=== PATIENT | male | born 1930 | race African-American/Black ===

== ENCOUNTER → 2017-09-21 | Outpatient (CLI) | payer OTHER, BC | LOC: HYPER 09-20 10:12 | DX: E11.622 Type 2 diabetes mellitus with other skin ulcer (principal); I83.899 Varicose veins of unspecified lower extremity with other complications; L97.811 Non-pressure chronic ulcer of other part of right lower leg limited to breakdown of skin; L97.821 Non-pressure chronic ulcer of other part of left lower leg limited to breakdown of skin; L08.89 Other specified local infections of the skin and subcutaneous tissue; R60.0 Localized edema; E78.5 Hyperlipidemia, unspecified; M19.90 Unspecified osteoarthritis, unspecified site; I10 Essential (primary) hypertension; E11.40 Type 2 diabetes mellitus with diabetic neuropathy, unspecified ==

== ENCOUNTER → 2018-03-15 | Outpatient (CLI) | payer OTHER, BC | LOC: HYPER 06:50 | DX: E11.622 Type 2 diabetes mellitus with other skin ulcer (principal); I87.331 Chronic venous hypertension (idiopathic) with ulcer and inflammation of right lower extremity; L97.811 Non-pressure chronic ulcer of other part of right lower leg limited to breakdown of skin; E11.40 Type 2 diabetes mellitus with diabetic neuropathy, unspecified; E78.5 Hyperlipidemia, unspecified; M19.90 Unspecified osteoarthritis, unspecified site; G47.30 Sleep apnea, unspecified; Z96.653 Presence of artificial knee joint, bilateral ==

== ENCOUNTER → 2018-03-29 | Outpatient (CLI) | payer OTHER, BC | LOC: HYPER 06:50 | DX: I87.331 Chronic venous hypertension (idiopathic) with ulcer and inflammation of right lower extremity (principal); E11.622 Type 2 diabetes mellitus with other skin ulcer; L97.811 Non-pressure chronic ulcer of other part of right lower leg limited to breakdown of skin; E78.5 Hyperlipidemia, unspecified; I10 Essential (primary) hypertension; M19.90 Unspecified osteoarthritis, unspecified site; E11.40 Type 2 diabetes mellitus with diabetic neuropathy, unspecified ==

== ENCOUNTER → 2018-05-03 | Outpatient (CLI) | payer OTHER, BC | LOC: HYPER 04-24 06:52 | DX: S80.821D Blister (nonthermal), right lower leg, subsequent encounter (principal); I87.331 Chronic venous hypertension (idiopathic) with ulcer and inflammation of right lower extremity; E11.622 Type 2 diabetes mellitus with other skin ulcer; L97.811 Non-pressure chronic ulcer of other part of right lower leg limited to breakdown of skin; R60.0 Localized edema; E78.5 Hyperlipidemia, unspecified; M19.90 Unspecified osteoarthritis, unspecified site; E11.40 Type 2 diabetes mellitus with diabetic neuropathy, unspecified; X58.XXXD Exposure to other specified factors, subsequent encounter ==

== ENCOUNTER → 2018-09-17 | Outpatient (CLI) | payer OTHER, BC | LOC: HYPER 07:11 | DX: E11.622 Type 2 diabetes mellitus with other skin ulcer (principal); I87.331 Chronic venous hypertension (idiopathic) with ulcer and inflammation of right lower extremity; L97.812 Non-pressure chronic ulcer of other part of right lower leg with fat layer exposed; E11.40 Type 2 diabetes mellitus with diabetic neuropathy, unspecified; E78.5 Hyperlipidemia, unspecified; G47.30 Sleep apnea, unspecified; I10 Essential (primary) hypertension; M19.90 Unspecified osteoarthritis, unspecified site; Z79.84 Long term (current) use of oral hypoglycemic drugs ==

== ENCOUNTER → 2018-10-05 | Outpatient (CLI) | payer OTHER, BC | LOC: HYPER 07:42 | DX: E11.622 Type 2 diabetes mellitus with other skin ulcer (principal); I87.331 Chronic venous hypertension (idiopathic) with ulcer and inflammation of right lower extremity; L97.822 Non-pressure chronic ulcer of other part of left lower leg with fat layer exposed; E11.40 Type 2 diabetes mellitus with diabetic neuropathy, unspecified; E78.5 Hyperlipidemia, unspecified; G47.30 Sleep apnea, unspecified; M19.90 Unspecified osteoarthritis, unspecified site; Z79.84 Long term (current) use of oral hypoglycemic drugs ==

== ENCOUNTER → 2019-04-03 | Outpatient (CLI) | payer OTHER, BC | LOC: HYPER 06:40 | DX: S81.811A Laceration without foreign body, right lower leg, initial encounter (principal); E11.40 Type 2 diabetes mellitus with diabetic neuropathy, unspecified; E78.5 Hyperlipidemia, unspecified; I10 Essential (primary) hypertension; M19.90 Unspecified osteoarthritis, unspecified site; G47.30 Sleep apnea, unspecified; R60.0 Localized edema; Z79.84 Long term (current) use of oral hypoglycemic drugs; X58.XXXA Exposure to other specified factors, initial encounter; Y93.89 Activity, other specified; Y92.89 Other specified places as the place of occurrence of the external cause; Y99.8 Other external cause status ==

== ENCOUNTER → 2019-04-10 | Outpatient (CLI) | payer OTHER, BC | LOC: HYPER 06:46 | DX: E11.622 Type 2 diabetes mellitus with other skin ulcer (principal); L97.811 Non-pressure chronic ulcer of other part of right lower leg limited to breakdown of skin; L97.821 Non-pressure chronic ulcer of other part of left lower leg limited to breakdown of skin; E11.40 Type 2 diabetes mellitus with diabetic neuropathy, unspecified; I10 Essential (primary) hypertension; E78.5 Hyperlipidemia, unspecified; M19.90 Unspecified osteoarthritis, unspecified site; R60.0 Localized edema; G47.30 Sleep apnea, unspecified; Z79.84 Long term (current) use of oral hypoglycemic drugs ==

== ENCOUNTER → 2019-08-22 | Outpatient (CLI) | payer OTHER, BC ==
[~2019-08-22] MED LIST: AMMONIUM LACTA226 GM TOP; ASPIR 8181 MG PO; AVAPRO300 MG PO; CARDIZEM CD360 MG PO; DEPO-TESTO200 MG/1 M; DULCOLAX STOOL100 M1 PO; FLOMAX0.4 MG PO; IPRAT-ALBUT 0.5-3 ML INH; IRON325 PO; KETOCONAZOLE15 GM TOP; LASIX 40 MG TAB40 MG PO; LIPITOR40 MG PO; METFORMIN HCL500 M3 PO; MIRALAX17 GM PO; MUCINEX600 MG PO; MULTIVITAMINS1 EAC7 PO; MUPIROCIN22 GM; NEURONTIN300 MG PO; PEPCID20 MG PO; PERCOCET 10-321 EAC1 PO; PREDNISONE 10 M10 MG PO; TIMOLOL GL0.5 %/5 M1 OPHTHALMIC; TYLENOL325 MG PO; ZOSYN 3.3753.375 GM IV
== END ==
LOC: HYPER 09:45
DX: E11.622 Type 2 diabetes mellitus with other skin ulcer (principal); I83.018 Varicose veins of right lower extremity with ulcer other part of lower leg; L97.811 Non-pressure chronic ulcer of other part of right lower leg limited to breakdown of skin; S81.811D Laceration without foreign body, right lower leg, subsequent encounter; I83.892 Varicose veins of left lower extremity with other complications; E11.40 Type 2 diabetes mellitus with diabetic neuropathy, unspecified; E78.5 Hyperlipidemia, unspecified; R60.0 Localized edema; G47.30 Sleep apnea, unspecified; I10 Essential (primary) hypertension; M19.90 Unspecified osteoarthritis, unspecified site; Z96.653 Presence of artificial knee joint, bilateral; Z90.49 Acquired absence of other specified parts of digestive tract; Z79.84 Long term (current) use of oral hypoglycemic drugs; X58.XXXD Exposure to other specified factors, subsequent encounter

== ENCOUNTER → 2019-08-29 | Outpatient (CLI) | payer OTHER, BC | LOC: HYPER 13:56 | DX: E11.622 Type 2 diabetes mellitus with other skin ulcer (principal); L97.311 Non-pressure chronic ulcer of right ankle limited to breakdown of skin; L97.811 Non-pressure chronic ulcer of other part of right lower leg limited to breakdown of skin; E11.40 Type 2 diabetes mellitus with diabetic neuropathy, unspecified; I10 Essential (primary) hypertension; E78.5 Hyperlipidemia, unspecified; M19.90 Unspecified osteoarthritis, unspecified site; G47.30 Sleep apnea, unspecified; R60.0 Localized edema; Z79.84 Long term (current) use of oral hypoglycemic drugs ==

== ENCOUNTER → 2019-09-05 | Outpatient (CLI) | payer OTHER, BC | LOC: HYPER 05:21 | DX: E11.622 Type 2 diabetes mellitus with other skin ulcer (principal); L97.811 Non-pressure chronic ulcer of other part of right lower leg limited to breakdown of skin; I87.2 Venous insufficiency (chronic) (peripheral); E11.40 Type 2 diabetes mellitus with diabetic neuropathy, unspecified; I10 Essential (primary) hypertension; E78.5 Hyperlipidemia, unspecified; M19.90 Unspecified osteoarthritis, unspecified site; G47.30 Sleep apnea, unspecified; R60.0 Localized edema; Z79.84 Long term (current) use of oral hypoglycemic drugs ==

== ENCOUNTER → 2019-09-13 | Outpatient (CLI) | payer OTHER, BC | LOC: HYPER 07:50 | DX: E11.622 Type 2 diabetes mellitus with other skin ulcer (principal); I83.018 Varicose veins of right lower extremity with ulcer other part of lower leg; L97.811 Non-pressure chronic ulcer of other part of right lower leg limited to breakdown of skin; I83.028 Varicose veins of left lower extremity with ulcer other part of lower leg; L97.821 Non-pressure chronic ulcer of other part of left lower leg limited to breakdown of skin; S90.01XD Contusion of right ankle, subsequent encounter; S81.811D Laceration without foreign body, right lower leg, subsequent encounter; S80.822D Blister (nonthermal), left lower leg, subsequent encounter; I89.0 Lymphedema, not elsewhere classified; R60.0 Localized edema; E11.40 Type 2 diabetes mellitus with diabetic neuropathy, unspecified; E78.5 Hyperlipidemia, unspecified; G47.30 Sleep apnea, unspecified; I10 Essential (primary) hypertension; M19.90 Unspecified osteoarthritis, unspecified site; Z79.84 Long term (current) use of oral hypoglycemic drugs; W22.8XXD Striking against or struck by other objects, subsequent encounter ==

== ENCOUNTER 2019-09-17 01:03 | Inpatient (IN) | payer OTHER, BC ==
[~2019-09-17] VITALS: Ht 175.3 cm; Wt 84.9 kg
[2019-09-17] VITALS (11 sets, daily range): BP systolic 110–163; BP diastolic 60–89
[2019-09-17 01:27] LABS: ABSOLUTE NEUTROPHILS 10.1 thou/uL (1.4-8.2); BASOPHILS 0.4 % (0.0-2.0); EOSINOPHILS 0.3 % (0.0-3.0); HEMATOCRIT 42.8 % (42.0-52.0); HEMOGLOBIN 13.3 gm/dL (14.0-18.0); MCH 26.8 pg (26.0-34.0); MCHC 31.1 g/dL (28.0-37.0); MCV 85.9 fL (80.0-100.0); MONOCYTES 5.4 % (1.0-8.0); PLATELET COUNT 257 thou/uL (150-400); POLYS 77.9 % (36.0-66.0); RBC 4.98 mil/uL (4.50-6.00); RDW 15.5 % (10.5-14.5)
[2019-09-17 01:34] LABS: ANION GAP 8 mmol/L (7-16); BUN 49 mg/dL (7-18); CALCIUM 9.4 mg/dL (8.5-10.1); CHLORIDE 104 mmol/L (98-107); CO2 30 mmol/L (21-32); CREATININE 1.7 mg/dL (0.7-1.3); GLUCOSE 204 mg/dL (74-106); POTASSIUM 4.4 mmol/L (3.5-5.1); SODIUM 142 mmol/L (136-145)
[2019-09-17 01:45] LABS: ALBUMIN 3.7 g/dL (3.4-5.0); SGOT 15 U/L (15-37); SGPT 12 U/L (30-65); TOTAL BILIRUBIN 0.5 mg/dL (<0.1-1.0); TOTAL PROTEIN 7.6 g/dL (6.4-8.2); TROPONIN-I <0.06 ng/mL (<0.06)
--- NOTE | 2019-09-17 02:39 | NUR ---
BILATERAL LOWER EXTREMITIES HAVE BEEN WRAPPED BY WOUND CARE OUTPATIENT TREATMENT PER PATIENT. INPATIENT NURSE PRACTITIONER AT BEDSIDE FOR EVALUATION REMOVED DRESSINGS AND INFORMED PATIENT THAT THE BILATERAL LOWER EXTREMITIES WOULD REMAIN UNCOVERED UNTIL SEEN BY WOUND CARE (INPATIENT SETTING)
[2019-09-17 03:17] LABS: BE(vivo) 0.3 mmol/L (-2 to +3); HCO3 27.1 mmol/L (22.0-26.0); PCO2 52.7 mmHg (35.0-45.0); PO2 110.2 mmHg (80.0-100.0); sO2 97.7 % (92.0-98.0)
[2019-09-17 03:18] LABS: pH 7.329 (7.360-7.450)
--- NOTE | 2019-09-17 04:30 | NUR ---
PATIENT ARRIVED TO ICU AT 09/17 FROM ER. PATIENT ADMITTED WITH CC/TELE ADMISSION ORDERS. PATIENT RESTING COMFORTBLY IN BED ON BIPAP. JORDON CINTRON HAS SEEN PATIENT AND PLACED ORDERS. DR. JIM NOTIFIED OF PATIENTS ARRIVAL AND CRITICAL ABG'S. ADMISSION DOCUMENTATION COMPLETE.
[2019-09-17 05:58] LABS: URINE BILIRUBIN NEGATIVE (Negative); URINE BLOOD 1+ (Negative); URINE CLARITY CLEAR; URINE COLOR YELLOW; URINE GLUCOSE-RANDOM* NEGATIVE (Negative); URINE KETONES NEGATIVE (Negative); URINE LEUKOCYTES-REFLEX NEGATIVE (Negative); URINE NITRITE-REFLEX NEGATIVE (Negative); URINE PROTEIN (DIPSTICK) NEGATIVE (Negative); URINE UROBILINOGEN 0.2 E.U./dl (0.2-1.0)
[2019-09-17 06:23] LABS: BACTERIA-REFLEX None Seen /HPF (None Seen); CASTS None Seen /LPF (None Seen); SQUAMOUS 0-3 Few /LPF (0-3); URINE RBC 3-10 Few /HPF (0-2); URINE WBC-REFLEX 0-5 Rare /HPF (0-5)
[2019-09-17 06:24] LABS: CRYSTALS None Seen /LPF (None Seen)
[2019-09-17 07:30] LABS: BE(vivo) 0.7 mmol/L (-2 to +3); HCO3 26.5 mmol/L (22.0-26.0); PCO2 47.4 mmHg (35.0-45.0); PO2 78.4 mmHg (80.0-100.0); pH 7.366 (7.360-7.450); sO2 95.1 % (92.0-98.0)
--- NOTE | 2019-09-17 09:30 | NUR ---
BEDSIDE ECHO IN PROGRESS.
--- NOTE | 2019-09-17 10:23 | 2DMMODE ---
Formerly [facility] [address] [place] [address] 2 D/M-MODE ECHOCARDIOGRAM Name: JOSUE TRACEY Room #: 246-P ADM IN M.R.#: [id number] Admission: 09/17/19 Attend Phys: Ranjan Burr Discharge: Date of : 34 Report #: [id number] THIS REPORT FOR: //name// APPROVED REPORT Study performed: 09/17/2019 09:11:37 EXAM: Comprehensive 2D, Doppler, and color-flow Echocardiogram Patient Location: ICU Room #: [facility] Status: routine BSA: 2.03 HR: 87 bpm BP: 136/77 mmHg Rhythm: NSR Other Information Study Quality: Adequate Technically limited study due to limited patient mobility. Indications Pulmonay edema, short of breath. Hx: CHF, HTN, HLP, DM. 2D Dimensions RVDd: 49.88 mm IVSd: 14.00 (7-11mm) LVOT Diam: 20.64 (18-24mm) LVDd: 47.44 mm PWd: 13.00 (7-11mm) Ascending Ao: 35.23 (22-36mm) LVDs: 28.50 (25-40mm) Aortic Root: 29.37 mm Volumes Left Atrial Volume (Systole) Single Plane 4CH: 122.59 mL Single Plane 2CH: 109.60 mL LA ESV Index: 61.00 mL/m2 Aortic Valve AoV Peak Ron.: 3.80 m/s AO Peak Gr.: 57.80 mmHg LVOT Max P.65 mmHg AO Mean Gr.: 32.62 mmHg AO V2 Mean: 2.67 m/s LVOT Max V: 1.08 m/s AO V2 VTI: 61.56 cm KAI Vmax: 0.95 cm2 Formerly [facility] [address] [place] [address] 2 D/M-MODE ECHOCARDIOGRAM Name: JOSUE TRACEY Room #: 246-P [facility] IN ..#: [id number] Admission: 09/17/19 Attend Phys: Ranjan Burr Discharge: Date of : 32 Report #: [id number] Mitral Valve E/A Ratio: 1.5 MV Decel. Time: 220.30 ms MV E Max Ron.: 1.73 m/s MV A Ron.: 1.14 m/s MV PHT: 63.89 ms IVRT: 48.44 ms Pulmonary Valve PV Peak Ron.: 1.34 m/s PV Peak Gr.: 7.16 mmHg Tricuspid Valve TR Peak Ron.: 4.02 m/s TR Peak Gr.: 64.70 mmHg Left Ventricle The left ventricle is normal size. There is normal LV segmental wall motion. Mild to moderate concentric left ventricular hypertrophy. Left ventricular systolic function is hyperdynamic. LVEF is 70%. Moderate diastolic dysfunction is present (pseudonormal filling). Right Ventricle Right ventricle is mild to moderately dilated. The right ventricular systolic function is normal. Atria Left atrium is severely dilated. Right atrium is mildly dilated. Aortic Valve Aortic valve is heavily calcified. Mild aortic regurgitation. There is severe valvular aortic stenosis. Calculated aortic valve area is 0.9 cm2 with maximum pressure gradient of 58 mmHg and mean pressure gradient of 33 mmHg. Mitral Valve Moderate mitral annular calcification. Moderate mitral regurgitation; eccentric jet. No evidence of mitral valve stenosis. There is mitral valve prolapse. Tricuspid Valve The tricuspid valve is normal in structure. Mild tricuspid regurgitation. Estimated PAP is 65mmHg plus the right atrial pressure. Formerly [facility] [address] [place] [address] 2 D/M-MODE ECHOCARDIOGRAM Name: ALEXYJOSUE Kapil Room #: 246-P [facility] IN M.R.#: [id number] Admission: 09/17/19 Attend Phys: Ranjan Burr Discharge: Date of : 32 Report #: [id number] Pulmonic Valve The pulmonary valve is normal in structure. Mild pulmonic regurgitation. Great Vessels The aortic root is normal in size. The ascending aorta is normal in size. IVC is not well visualized. Pericardium There is no pericardial effusion. <Conclusion> The left ventricle is normal size. LVEF is 70%. Right ventricle is mild to moderately dilated. The right ventricular systolic function is normal. Left atrium is severely dilated. Right atrium is mildly dilated. Aortic valve is heavily calcified. Mild aortic regurgitation. There is severe valvular aortic stenosis. Calculated aortic valve area is 0.9 cm2 with maximum pressure gradient of 58 mmHg and mean pressure gradient of 33 mmHg. Moderate mitral annular calcification. Moderate mitral regurgitation; eccentric jet. The tricuspid valve is normal in structure. Mild tricuspid regurgitation. Estimated PAP is 65mmHg plus the right atrial pressure. The pulmonary valve is normal in structure. Mild pulmonic regurgitation. There is no pericardial effusion. <ELECTRONICALLY SIGNED> By: Roddy Buckley MD 09/17/19 1023 1023 1023 Roddy Buckley MD /INF
--- NOTE | 2019-09-17 14:52 | NUR ---
WOUND CARE F/U; ROUNDING WITH DR LANE. THE LEFT LEG WOUND IS FRAGIALLY HEALED. NO S/S OF INFECTION. RECOMMENDATIONS; XEROFORM,SECURE WITH TRUMAN, DAILY/PRN DISCUSSED WITH RN
--- NOTE | 2019-09-17 15:55 | NUR ---
INITIAL ASSESSMENT: SW reviewed chart and spoke with nursing. Pt was admitted from home due to CHF/pneumonia. Pt is currently in ICU. SW met with pt at bedside. Introduced role of SW. Pt is alert/orientated x 4. Pt reports he lives at home with his . Prior to admission, pt was independent with ADLs. Pt reports he has a cane and walker at home. Pt's home has 7 steps from the garage inside and 8 steps up to the second floor to the bedroom. Pt reports that he is able to navigate the stairs, but slowly. Pt's PCP is Dr. Jaun Stratton. Pt states he is currently on service with [facility]. Pt has done outpatient therapy at [facility]. [facility] liaison aware of pt's hospitalization. SW is following to assist as needed with discharge planning.
--- NOTE | 2019-09-17 16:07 | NUR ---
DISCHARGE PLANNING. ANTICIPATED DISCHARGE TO HOME WITH HOME HEALTH SERVICES. PATIENT STATES HE IS CURRENT WITH [facility], CONFIRMED WITH [facility] LIA[facility]. CLINICAL INFORMATION FAXED TO [facility], VERIFIED RECEIVED. FOLLOWING TO ASSIST WITH DISCHARGE NEEDS. UNIT SW AWARE.
--- NOTE | 2019-09-17 19:18 | EKG ---
[address] [place] [address] ELECTROCARDIOGRAM REPORT Name: JOSUE TRACEY Room #: 246-P ADM IN M.R.#: [id number] Admission: 09/17/19 Attend Phys: Ranjan Vera Discharge: Date of : 32 Report #: [id number] THIS REPORT FOR: //name// [facility] ED Test Date: 2019-09-17 Test Time: 01:11:32 Pat Name: JOSUE TRACEY Department: Room: 246 Gender: M Cigar Bander: NADIA : 1930 Requested By: Kamari Mahan Order Number: [id number] MD: Nicolás Mills Measurements Intervals [place] Rate: 91 P: 24 FL: 199 QRS: -43 QRSD: 109 T: 99 QT: 354 QTc: 436 Interpretive Statements Baseline artifact limits interpretation Sinus rhythm Leftward axis Nonspecific intraventricular conduction delay Poor R wave progression Compared to ECG 10/22/2009 09:32:36 [place] has shifted leftward Electronically Signed On 09-17-2019 19:17:52 CRIBBER by Nicolás Mills [email or web address] <ELECTRONICALLY SIGNED> By: Nicolás Mills MD, [facility] 09/17/191916 0 0 Nicolás Mills MD, [facility] /EPI
--- NOTE | 2019-09-17 23:55 | NUR ---
Patient is lying in bed watching tv at this time. No distress is noted. Will continue to monitor.
[2019-09-18] VITALS (7 sets, daily range): BP systolic 105–136; BP diastolic 57–86
[2019-09-18 04:54] LABS: HEMATOCRIT 36.4 % (42.0-52.0); HEMOGLOBIN 11.4 gm/dL (14.0-18.0); MCHC 31.5 g/dL (28.0-37.0); MCV 85.7 fL (80.0-100.0); RBC 4.24 mil/uL (4.50-6.00); WBC 5.5 thou/uL (4.0-11.0)
[2019-09-18 05:05] LABS: CALCIUM 8.9 mg/dL (8.5-10.1); CREATININE 1.6 mg/dL (0.7-1.3); POTASSIUM 4.1 mmol/L (3.5-5.1)
--- NOTE | 2019-09-19 04:46 | NUR ---
Patient reported pain and was administered oxycodone around 2300 to partial relief. Patient is working towards his discharge goals. Nursing will continue to monitor.
[2019-09-19 04:54] VITALS: BP 141/86
[2019-09-19 07:14] VITALS: BP 128/82
[2019-09-19 10:45] LABS: HEMATOCRIT 39.2 % (42.0-52.0); HEMOGLOBIN 12.4 gm/dL (14.0-18.0); MCH 26.9 pg (26.0-34.0); MCHC 31.6 g/dL (28.0-37.0); MCV 85.1 fL (80.0-100.0); RBC 4.61 mil/uL (4.50-6.00); RDW 15.8 % (10.5-14.5); WBC 8.7 thou/uL (4.0-11.0)
[2019-09-19 10:58] LABS: CALCIUM 9.5 mg/dL (8.5-10.1); CREATININE 1.7 mg/dL (0.7-1.3); MAGNESIUM 1.5 mg/dL (1.8-2.4); POTASSIUM 3.6 mmol/L (3.5-5.1)
[2019-09-19 11:39] VITALS: BP 116/75
--- NOTE | 2019-09-19 13:43 | NUR ---
SW reviewed chart and spoke with nursing and attending physician. Pt was transferred to from ICU and is progressing towards goals for discharge. Discharge home is anticipated in 1-2 days. SW met with pt at bedside to discuss discharge plan. Pt states he feels strong enough to return home and resume HH services. SW updated [facility] liaison. Plan is for pt to discharge home with HH when medically stable. BRAIN is following to assist as needed with discharge planning.
[2019-09-19] MEDS ORDERED: MUPIROCIN22 GM (16:01)
[2019-09-19] MEDS ORDERED: FLOMAX0.4 MG PO (16:02)
[2019-09-19] MEDS ORDERED: AVAPRO300 MG PO (16:03)
[2019-09-19] MEDS ORDERED: LASIX 40 MG TAB40 MG PO (16:03)
[2019-09-19] MEDS ORDERED: KETOCONAZOLE15 GM TOP (16:05)
[2019-09-19] MEDS ORDERED: DULCOLAX STOOL100 M1 PO (16:06)
[2019-09-19] MEDS ORDERED: CARDIZEM CD360 MG PO (16:07)
[2019-09-19] MEDS ORDERED: LIPITOR40 MG PO (16:07)
[2019-09-19] MEDS ORDERED: MULTIVITAMINS1 EAC7 PO (16:08)
[2019-09-19] MEDS ORDERED: IRON325 PO (16:08)
[2019-09-19] MEDS ORDERED: NEURONTIN300 MG PO (16:10)
[2019-09-19] MEDS ORDERED: PERCOCET 10-321 EAC1 PO (16:11)
[2019-09-19] MEDS ORDERED: METFORMIN HCL500 M3 PO (16:12)
[2019-09-19] MEDS ORDERED: DEPO-TESTO200 MG/1 M (16:13)
[2019-09-19 16:40] VITALS: BP 144/90
--- NOTE | 2019-09-19 16:42 | NUR ---
ASSUMED CARE OF PATIENT AT 0700. NSR. 2L OXYGEN ON NASAL CANNULA. VSS. MULTIPLE BOWEL MOVEMENTS TODAY AFTER ONE TIME ORDER OF LACTULOSE. POZO OUTPUT ADEQUATE. CONTINUING TO MONITOR.
[2019-09-19 19:50] VITALS: BP 152/107
[2019-09-19 21:50] VITALS: BP 133/89
--- NOTE | 2019-09-20 02:18 | NUR ---
HAS BEEN AWAKE MOST OF SHIFT. WORKING ON GOALS AND PLAN OF CARE FOR NOC. PAIN MEDICATION GIVEN NEEDED FOR COMFORT AND CHRONIC PAIN. PROGRESSING SLOWLY TOWARDS DISCHARGE GOALS. CONTINUE TO ASSES.
[2019-09-20 03:23] VITALS: BP 146/92
[2019-09-20 05:28] LABS: HEMATOCRIT 38.8 % (42.0-52.0); HEMOGLOBIN 12.1 gm/dL (14.0-18.0); MCH 26.7 pg (26.0-34.0); MCHC 31.2 g/dL (28.0-37.0); MCV 85.4 fL (80.0-100.0); RBC 4.54 mil/uL (4.50-6.00); RDW 15.5 % (10.5-14.5); WBC 7.5 thou/uL (4.0-11.0)
[2019-09-20 05:41] LABS: CALCIUM 9.1 mg/dL (8.5-10.1); CREATININE 1.7 mg/dL (0.7-1.3); MAGNESIUM 1.6 mg/dL (1.8-2.4); POTASSIUM 3.9 mmol/L (3.5-5.1)
[2019-09-20 07:50] VITALS: BP 135/89
--- NOTE | 2019-09-20 10:15 | NUR ---
BRAIN reviewed chart and spoke with nursing. BRAIN notified that is able to accept pt when medically stable. BRAIN met with pt at bedside to provide update and discuss discharge plan. Pt is agreeable with going to prior to returning home. SW updated [facility] liaison. BRAIN notified attending physician of 's acceptance. SW is following to assist as needed with discharge planning.
[2019-09-20 11:41] VITALS: BP 123/81
[2019-09-20] MEDS ORDERED: MIRALAX17 GM PO (12:02)
[2019-09-20] MEDS ORDERED: PEPCID20 MG PO (12:02)
[2019-09-20] MEDS ORDERED: MUCINEX600 MG PO (12:02)
[2019-09-20] MEDS ORDERED: TYLENOL325 MG PO (12:02)
[2019-09-20] MEDS ORDERED: AMMONIUM LACTA226 GM TOP (12:02)
[2019-09-20] MEDS ORDERED: IPRAT-ALBUT 0.5-3 ML INH (12:02)
[2019-09-20] MEDS ORDERED: ASPIR 8181 MG PO (12:02)
[2019-09-20] MEDS ORDERED: ZOSYN 3.3753.375 GM IV (12:12)
[2019-09-20] MEDS ORDERED: PREDNISONE 10 M10 MG PO (12:18)
--- NOTE | 2019-09-20 13:36 | NUR ---
ASSUMED CARE OF PT AT 0700. PT ALERT AND ORIENTED IN NO ACUTE DISTRESS. VOICING NO COMPLAINTS. BREATHING COMFORTABLY ON 2L NC. CXR SHOWING IMPROVEMENT. UP W/ 1 ASSIST. VITALS STABLE. BLOOD SUGARS CONTROLLED. CALLS OUT APPROPRIATELY. D/C PENDING REHAB BED. PT PROGRESSING TOWARD POC GOALS.
--- NOTE | 2019-09-20 15:08 | HC ---
[facility] [place] [address] CONSULTATION Name: JOSUE TRACEY Room #: 356-P [facility] IN M.R.#: [id number] Admission: 09/17/19 Attend Phys: Ranjan Vera Discharge: Date of : 32 Report #: [id number] THIS REPORT FOR: //name// CC: Ranjan Stratton DATE OF SERVICE: 09/19/2019 INFECTIOUS DISEASE CONSULTATION. REASON FOR CONSULTATION: I was asked to evaluate concerning bacteremia and respiratory failure. HISTORY OF PRESENT ILLNESS: The patient is an 88-year-old underlying history of diabetes, hypertension, aortic stenosis, diastolic heart failure, obstructive sleep apnea, hospitalized about 3 or 4 months ago at [facility] with congestive heart failure. Dismissed on 2 liters of oxygen per nasal cannula. Had been doing reasonably well at home until 4 days ago after he was watching a football game, he had acute onset of shortness of breath. Mild chest discomfort with no definite chest pain. No cough or sputum production. No nausea, vomiting or diarrhea. He has had no fever, chills or sweats. Denies any hemoptysis. He has had no chest pain or pleuritic discomfort. Hospitalized through the Emergency Room, placed on IV antibiotic therapy. He was also given diuretics. With such, he has lost several pounds of weight. He has continued in negative fluid balance. Remains on 2 liters of oxygen per nasal cannula. Initial white count was 13,000, now is normal. Blood cultures obtained at the time of admission 11/07 showing gram-negative coccobacillus. REVIEW OF SYSTEMS: A 10-point review of system was negative other than what has been described above. ALLERGIES: None known. MEDICATIONS: Included albuterol, ipratropium, docusate sodium, MiraLax, Pepcid, aspirin, Lasix, insulin, Solu-Medrol. Antibiotic therapy has included vancomycin, Levaquin, Zosyn. PAST MEDICAL HISTORY: DVT, obstructive sleep apnea, hypertension, anemia, hiatal hernia, diabetes, hyperlipidemia, aortic stenosis, bilateral total knee arthroplasty, spinal stenosis, previous laminectomy, small-bowel obstruction, ventral herniorrhaphy, BPH. FAMILY HISTORY: Noncontributory. SOCIAL HISTORY: Nonsmoker, no significant alcohol intake. [address] [address] CONSULTATION Name: ALEXYJOSUE Room #: 356-[facility] IN .R.#: [id number] Admission: 09/17/19 Attend Phys: Ranjan Vera Discharge: Date of : 32 Report #: [id number] PHYSICAL EXAMINATION: VITAL SIGNS: Afebrile and hemodynamically stable. On oxygen at 2 liters per nasal cannula, sitting up in his chair. He is alert, cooperative, pleasant, in no acute distress. SKIN: With venous stasis ulcers with scarring. No active lesion identified. No palpable adenopathy. HEENT: Eyes, without scleral icterus. He was edentulous. No oral lesions noted. NECK: Supple, with no thyromegaly or mass. LUNGS: Basilar crackles bilaterally. No consolidation. No rub. HEART: Regular with a 3/6 systolic murmur heard across the precordium, most prominent left sternal border. No gallop. No rub. ABDOMEN: Obese, soft, nontender, no hepatosplenomegaly or mass appreciated. GENITORECTAL: Not performed. EXTREMITIES: With 1+ lower extremity edema. No clubbing or cyanosis. BACK: Nontender. NEUROLOGIC: Cranial nerves intact. Strength in upper and lower extremities was symmetric and normal. Sensation to touch upper and lower extremities normal. Mood, no anxiety or depression identified. LABORATORY STUDIES: Sodium 140, potassium 3.6, bicarbonate 33, creatinine 1.7. Hemoglobin 12.4, WBC 8.7, platelet count 234,000. Abdominal x-ray, no evidence of bowel obstruction, large amount of stool in the colon. Blood cultures 1 of 2 showing gram-positive cocci, gram-negative coccobacillus. Vancomycin trough 10. Procalcitonin 0.26. Chest x-ray, pulmonary edema. IMPRESSION: 1. An 88-year-old with acute hypoxia, I am suspecting congestive heart failure at presentation. He did have mild leukocytosis, but no fever and he has had no cough. In addition, he has had positive blood culture, yet indeterminate at this point if we are dealing with true bacteremia or contaminant. No evidence of urinary tract infection. His urinalysis was unremarkable. He does have constipation, but no abdominal pain. Does have suspected chronic kidney disease with creatinine now 1.7. 2. Diabetes. 3. Hypertension. 4. Peripheral neuropathy. 5. Obstructive sleep apnea. RECOMMENDATIONS: We will continue with Zosyn pending further culture results. Follow serial laboratory studies and chest x-ray as continue treatment with antibiotics and diuresis. <ELECTRONICALLY SIGNED> By: Mahad Mcgee MD 09/20/19 1508 1220 58 Mahad Mcgee MD /nt
[2019-09-20 15:16] VITALS: BP 126/83
[2019-09-21] MEDS ORDERED: TIMOLOL GL0.5 %/5 M1 OPHTHALMIC (14:37)
--- NOTE | 2019-09-22 11:57 | HC ---
[facility] [place] [address] CONSULTATION Name: JOSUE TRACEY Room #: 356-P [facility]..#: [id number] Admission: 09/17/19 Attend Phys: Ranjan Vera Discharge: 09/20/19 Date of : 32 Report #: [id number] THIS REPORT FOR: //name// CC: Ranjan Blackmonen Chayito DATE OF SERVICE: 09/17/2019 HISTORY OF PRESENT ILLNESS: An 88-year-old male patient who was admitted to the hospital with acute hypoxic respiratory failure, diastolic heart failure and community-acquired pneumonia. He is noted to have ulcerations to both of his legs and I have been asked to see him with regard to wound care. He is currently in the ICU having some mild dyspnea, but states he has been feeling a little bit better since admission. PAST MEDICAL AND SURGICAL HISTORY: Positive for congestive heart failure and pneumonia, history of hypertension, type 2 diabetes mellitus, mitral valve prolapse, previous bilateral knee replacements and spinal stenosis. SOCIAL HISTORY: Negative for alcohol or tobacco use. FAMILY HISTORY: Noncontributory. ALLERGIES: None. MEDICATIONS: Ipratropium albuterol, aspirin, atorvastatin, ceftriaxone, diltiazem, famotidine, ferrous sulfate, Lasix, gabapentin, losartan, metformin, polyethylene glycol, prednisone, tamsulosin, and testosterone. REVIEW OF SYSTEMS: Limited to that mentioned already in the history of present illness. The patient is having some dyspnea and is not able to answer questions other than that discussed above. PHYSICAL EXAMINATION: VITAL SIGNS: At this time include temperature 36.0, pulse 87, respiratory rate 18, blood pressure 111/61. GENERAL: This is a chronically ill-appearing male patient who appears to be in mild discomfort. HEENT: Head normocephalic. Nose and throat are clear. NECK: Supple. LUNGS: Diminished. HEART: Tachycardic without murmur. ABDOMEN: Soft. Bowel sounds present. EXTREMITIES: Demonstrate venous type ulcerations to both pretibial regions, greater on the right than on the left. Both areas are clean, granulating and showing signs of epithelialization. They are not infected. There is 2+ edema [facility] [place] [place] [address] [place] [address] CONSULTATION Name: JOSUE TRACEY Room #: 356-P [facility] IN M.R.#: [id number] Admission: 09/17/19 Attend Phys: Ranjan Vera Discharge: 09/20/19 Date of : 32 Report #: [id number] noted at this time. CLINICAL IMPRESSION: 1. Venous ulcers, bilateral lower extremities, right greater than left. 2. Healthcare-associated pneumonia. 3. Acute kidney injury. 4. Type 2 diabetes mellitus. 5. Hypertension. RECOMMENDATIONS: At this point in time, I recommend topical Xeroform gauze, ABD and lightly applied Zhen wraps to both lower extremities as well as he can tolerate, continuation of current medications, nutritional support. Elevation of lower extremities. The patient is agreeable to current plan of care. I appreciate being asked to see him in consultation. <ELECTRONICALLY SIGNED> By: Allen Kuo MD 09/22/19 1157 [id number] [id number] Allen Kuo MD /nt
== END 2019-09-20 17:25 | DRG 291 ==
LOC: ER 01:03 → 3W 02:07 → EROBS 02:07 → ICU 02:07 → 3W 09-18 18:07
PROVIDERS: Emergency Medicine; Internal Medicine; Nurse Practitioner Family; Pediatrics; ADMIT Hospitalist
PROC: 5A09357 Assistance with Respiratory Ventilation, Less than 24 Consecutive Hours, Continuous Positive Airway Pressure (ICD-10-PCS; principal; 2019-09-17)
PROC: 5A09357 Assistance with Respiratory Ventilation, Less than 24 Consecutive Hours, Continuous Positive Airway Pressure (ICD-10-PCS; 2019-09-18)
DX: I50.33 Acute on chronic diastolic (congestive) heart failure (principal); J18.9 Pneumonia, unspecified organism; J96.21 Acute and chronic respiratory failure with hypoxia; I13.0 Hypertensive heart and chronic kidney disease with heart failure and stage 1 through stage 4 chronic kidney disease, or unspecified chronic kidney disease; N17.9 Acute kidney failure, unspecified; L97.929 Non-pressure chronic ulcer of unspecified part of left lower leg with unspecified severity; L97.919 Non-pressure chronic ulcer of unspecified part of right lower leg with unspecified severity; E46 Unspecified protein-calorie malnutrition; E78.00 Pure hypercholesterolemia, unspecified; N40.0 Benign prostatic hyperplasia without lower urinary tract symptoms; Z96.653 Presence of artificial knee joint, bilateral; E11.42 Type 2 diabetes mellitus with diabetic polyneuropathy; M48.00 Spinal stenosis, site unspecified; G89.29 Other chronic pain; M54.9 Dorsalgia, unspecified; D64.9 Anemia, unspecified; G47.33 Obstructive sleep apnea (adult) (pediatric); E11.22 Type 2 diabetes mellitus with diabetic chronic kidney disease; N18.3 Chronic kidney disease, stage 3 (moderate); D63.8 Anemia in other chronic diseases classified elsewhere; Z86.718 Personal history of other venous thrombosis and embolism; Z68.27 Body mass index [BMI] 27.0-27.9, adult; Z87.891 Personal history of nicotine dependence
CPT/HCPCS: 10203; 10879

== ENCOUNTER 2019-09-20 14:27 | Inpatient (IN) | payer OTHER, BC ==
[~2019-09-20] VITALS: Ht 170.2 cm; Wt 81.9 kg
[~2019-09-20 14:27] MED LIST changes: -TIMOLOL GL0.5 %/5 M1 OPHTHALMIC
--- NOTE | 2019-09-20 15:18 | NUR ---
cm visited with pt and at bedside prior to moving to acute rehab this afternoon. edson was up in recliner chair with legs elevated, noted pt had méndez cath and oxygen per nasal canula. intro to dcp, transition of care, team meeting. pt preferrs to go by edson, he is a & o x 3, pleasant and able to make his needs know. pt stated waiting to use the commode. curb setter entered room to assist pt. offered to leave room and come back later, " no its ok you can visit with my hiarl"/edson. per pt, and chart " live in house with steps 7 to enters, 8 steps inside the home and bedroom is on 2nd floor. pt was independent prior to admit. has cane, and walker. manage own medication. drives vehicle. [facility] with [facility]."/pt and hiral. will cont following as needed for dc needs.
[2019-09-20 17:30] VITALS: BP 135/86
[2019-09-20 19:16] VITALS: BP 145/98
--- NOTE | 2019-09-20 19:30 | NUR ---
LATE ENTRY: RECEIVED REPORT FROM MARYCRUZ PRAKASH FROM 3W. PT ADMITS TO REHAB TO ROOM 509 FOR PNEUMONIA AND MEDICAL COMPLEXITY WITH GENERAL DEBILITY. LIVES AT HOME WITH DAUGHTER AND . WALKED WITH WALKER AND CANE AT HOME. PATIENT ALERT X ORIENTED 4, VSS ON RA. REASSESSMENT PER CHART. LUNG SOUND CLEAR BUT DIMINISHED ON THE BASES. ON 2L OF OXYGEN NOW HE WAS AT HOME. PT HAD HX OF CONSTIPATION, RECEIVED LAXATIVES AND HAD 3X LOOSE STOOL ON 09/19.HAS SMALL WOUND ON LEFT CALF AREA COVERED WITH OPTIFOAM ALMOST HEALED. RIGHT LOWER LEG DISCOLORATION OF OLD WOUD THAT WAS A SCAR. POZO INTACT WITH CLEAR YELLOW URINE. ON LASIX AND STRICT I&0. ON HH, 1800 CARB CONTROL DIET AND 1500CC FLUID RESTRITION. CONTINUE TO BE ON IV ABT FOR PNEUMONIA WITHOUT ADVERSE REACTION NOTED. 2 IV ON LEFT AC AND LEFT WRIST PATENT AND INTACT. DISCUSSED ABOUT REHAB SCHEDULE. PT READ FALL CONTRACTION AND SIGNED ADMISSION CONSENTS. GAVE REPORT TO NIGHT NURSE TO CALL FOR PHYSCIAN CONSULTS AND FOLLOW UP WITH ADMISSION MEDS AND CONTINUE TO MONITOR.
--- NOTE | 2019-09-21 00:55 | NUR ---
PATIENT ASSESSED AND IS ALERT X 4. SKIN WARM AND DRY. RESP EVEN AND UNLABORED. STAND UP WITH 1 MOD ASSIST TO BSC. LIVES AT HOME WITH DAUGHTER AND . POZO INTACT YELLOW IN COLOR. HAS HX OF CONSTIPATION. HAD 2 LOOSE STOOLS YESTERDAY. HAS 2 SL IV'S BOTH FLUSH WELL. Has 1 + edema noted to lower extremities.REQUESTING MELATONIN FOR SLEEP. WILL TALK TO MD IN AM. PAIN IN LOWER BACK REQUESTED OXYCODONE WHICH RELIEF WAS GOOD, SLEEPING OFF AND ON. TAKES PILLS WHOLE WITH H20. HAS WOUND ON LEFT CALF AREA. AND ONE THAT IS HEALED ON RIGHT LOWER LEG THAT WAS A SCAR. IS A FALL RISK. 02 AT 2LNC. DENIES ANY SOA. IS ON STRICK I&0. ON FLUID RESTRICTION OF 1500 CC. CONT PLANN OF CARE.
[2019-09-21 05:49] LABS: HEMATOCRIT 39.9 % (42.0-52.0); HEMOGLOBIN 12.6 gm/dL (14.0-18.0); MCH 26.9 pg (26.0-34.0); MCHC 31.7 g/dL (28.0-37.0); MCV 84.9 fL (80.0-100.0); RBC 4.69 mil/uL (4.50-6.00); RDW 15.5 % (10.5-14.5); WBC 8.2 thou/uL (4.0-11.0)
[2019-09-21 05:58] LABS: CREATININE 1.4 mg/dL (0.7-1.3); MAGNESIUM 1.7 mg/dL (1.8-2.4); POTASSIUM 3.8 mmol/L (3.5-5.1)
[2019-09-21 07:48] VITALS: BP 132/89
--- NOTE | 2019-09-21 07:49 | NUR ---
ASSUME PT CARE AT 0700. NIGHT NURSE GAVE REPORT THAT PT SLEEP WELL LAST NIGHT. HAS NO ORDER FOR INSULIN, NEEDS ORDER FOR EYE DROP AND WANTS TO BE ON MELATONIN. CALLED AND NOTIFIED DR. ARTEAGA AND HE SAID HE WILL ADD ORDERS. CALLED CONSULT FOR DR. BRYAN, DR. JIM AND DR. MUNOZ AT THEIR OFFICE. DOCTORS WILL BE NOTIFIED. PT IS UP WITH OT NOW. WILL CONTINUE TO MONITOR.
[2019-09-21] MEDS ORDERED: TIMOLOL GL0.5 %/5 M1 OPHTHALMIC (14:37)
--- NOTE | 2019-09-21 15:44 | NUR ---
CONSULT [id number] IS COMPLETED. THIS SCRAP METAL COLLECTOR MET THE PATIENT (A ) AND HIS . SHE WAS DOING FOOT CARE WITH HIM. WE DID LIFE REVIEW AND DISCUSSED HIS AMI. WE CONCLUDED IN PRAYER.
[2019-09-21 19:19] VITALS: BP 92/57
--- NOTE | 2019-09-21 23:49 | NUR ---
PT ASSESSMENT DONE AND VSS. MEDS GIVEN AND WELL TOLERATED. FALL PRECAUTIONS IN PLACE. HOURLY ROUNDING. CALL LIGHT IN REACH. SLEEPING WELL. WILL CONTINUE TO MONITOR.
[2019-09-22 07:46] LABS: HEMATOCRIT 43.9 % (42.0-52.0); HEMOGLOBIN 13.7 gm/dL (14.0-18.0); MCH 26.7 pg (26.0-34.0); MCHC 31.1 g/dL (28.0-37.0); MCV 85.8 fL (80.0-100.0); RBC 5.12 mil/uL (4.50-6.00); RDW 15.6 % (10.5-14.5); WBC 9.1 thou/uL (4.0-11.0)
[2019-09-22 07:55] LABS: BUN 60 mg/dL (7-18); CALCIUM 9.6 mg/dL (8.5-10.1); CHLORIDE 98 mmol/L (98-107); CO2 37 mmol/L (21-32); CREATININE 1.7 mg/dL (0.7-1.3); GLUCOSE 142 mg/dL (74-106); MAGNESIUM 1.8 mg/dL (1.8-2.4); POTASSIUM 3.7 mmol/L (3.5-5.1); SODIUM 134 mmol/L (136-145)
[2019-09-22 07:59] LABS: ANION GAP < 1 mmol/L (7-16)
[2019-09-22 10:00] VITALS: BP 113/76
--- NOTE | 2019-09-22 18:26 | NUR ---
PT ALERT AND ORIENTED TIMES FOUR. VSS, 98%2L. PT DEBIES PAIN/SOA. PT TOLERATES MEDS AAN MEALS. PT WORKED WELL WITH PT TODAY. PT ALSO UP SITTING IN THE CAHIR FOR MOST OF THE DAY. SÁNCHEZ REMOVED THIS SHIFT. PT SLOWLY PROGRESSING BRANDTS POC GOALS.
[2019-09-22 20:13] VITALS: BP 92/43
--- NOTE | 2019-09-22 23:41 | NUR ---
PT ASSESSMENT DONE AND VSS. MEDS GIVEN AND WELL TOLERATED. FALL PRECAUTIONS IN PLACE. HOURLY ROUNDING. CALL LIGHT IN REACH. SLEEPING WELL. WILL CONTINUE TO MONITOR.
[2019-09-23 03:05] LABS: GLYCOHEMOGLOBIN (HGB A1C) 7.1 % (4.8-5.6)
[2019-09-23 05:44] LABS: HEMATOCRIT 44.4 % (42.0-52.0); MCH 26.8 pg (26.0-34.0); MCHC 31.4 g/dL (28.0-37.0); MCV 85.4 fL (80.0-100.0); RBC 5.2 mil/uL (4.50-6.00); RDW 15.8 % (10.5-14.5)
[2019-09-23 06:31] LABS: CALCIUM 9.3 mg/dL (8.5-10.1); CREATININE 1.9 mg/dL (0.7-1.3); MAGNESIUM 1.8 mg/dL (1.8-2.4); POTASSIUM 3.7 mmol/L (3.5-5.1)
[2019-09-23 08:19] VITALS: BP 117/75
--- NOTE | 2019-09-23 10:45 | NUR ---
ASSUMED CARE OF PT AT 0715. REPORTS DIDN'T SLEEP GOOD LAST NIGHT. WILL ASK HORTENCIA FOR SLEEPING AID. B/P 117/75, PT WAS 99/42 LAST NIGHT. HELD LOSARTAN AND NOTIFIED HROTENCIA FOR PARAMETER. CREATINE 1.9. B/P LOW. PT IS ON 1500CC. PT HAS HX BPH. NOTED ORDER TO STOP FLOMAX NOW. WILL CONTINUE TO MONTOR NEED FOR FLOMAX. HG A1C 7.1 DR. ZUÑIGA CAME TO SEE PT THIS AM, BS 101 THIS AM. DOCTOR SAID NO INSULIN NEED AT THIS MOMENT CONTINUE WITH HYPERGLYCEMIA AGENT IT SEEM PT BS HIGH AT HS WILL CONTINUE TO MONITOR. PT ALERT AND ORIENTED X4. SAT 97% RA. LUNG SOUND IS BETTER. HE WAS ON 2L AT HOME. PT ALERT AND ORIENTED X4. ABLE TO VOICE HIS OWN NEEDS. UP WITH WALKER WITH MIN ASSIST, GB. CONT B&B HAD BM THIS AM. HAS CHRONIC BACK PAIN AND SHOULDER PAIN. RATED PAIN 6/10, GAVE PRN TYLENOL EARLIER. FEELS BETTER NOW.DISCUSSED ABOUT VOLATEREN GEL FOR CHRONIC ARTHIRITS AND MELATONIN FOR SLEEP. PT AGREES. HAS SMALL SORE ON L LOWER CALF. DRESSING C/D/I. DRY SKIN. AMMONIUM LACTATE APPLIED. MEDS TOOK WITH THIN LIQUID SLOWLY. CONTINUE TO BE ON ABT IV FOR PNEUMONIA MONITOR BY ID WITHOUT ADVERSE REACTION NOTED. POZO REMOVED YESTERDAY. URINATED 400CC CLEAR URINE, BS AT 0800 HAD 73 RESIDUAL. PARTICIPATED IN SCHEDULED THERAPIES. UP TO DINNING FOR MEAL BREAKFAST. HAD GOOD APPETITE. ATE 100% BREAKFAST. FALL PRECAUTIONS IN PLACE, CALL LIGHT WITHIN REACH. OFFERED SUPPORTIVE CARE. WILL TRY TO OBTAIN ORDER FOR MELATONIN FOR SLEEP AND VOLATERENE GEL FOR CHRONIC ARTHRITIS. WILL CONTINUE TO MONITOR.
--- NOTE | 2019-09-23 13:24 | NUR ---
Nutrition: Assessed due to consult for 'other' and 'on heart healthy, 1800 carb controlled diet.' Pt transferred to rehab this weekend. Admit: medical complexity w/ generalized debility, pneumonia. Also CHF. PMH: DM II, CHF, CKD stage 3. Visited pt at lunch. On 2 g Na diet, with Lasix BID. Prior to 5N admit, was on a calorie/carb controlled diet. These diet restrictions were not continued to rehab. BG 101 today, ranged 116-224 mg/dl per 09/22. If BGs found to be more consistently >180-200, then consider adding diabetic restrictions back in. Endo cut metformin dose in 1/2 given CKD stage. Added Tradjenta. Educated on low salt, need for IGGY, and discussed foods to avoid or extremely limit. Explained alternate ways to flavor foods. Eating 80-100% of meals; 93% meal average the last few days. Denies appetite issues, likes most of the food. Helped pt change vegetable preferences to peas, carrots, or green beans. Otherwise, low nutrition risk.
[2019-09-23 20:21] VITALS: BP 112/54
--- NOTE | 2019-09-24 00:20 | NUR ---
PT ALERT AND ORIENTED X 4. AMB TO BR WITH WALKER AND ASSIST X 1. C/O PAIN IN HIS BACK RATED 3/10. REFUSED PAIN MEDS. MELATONIN GIVEN AT HS FOR SLEEP. PT UP LATE WATCHING FOOTBALL GAME. ASSISTED TO BED X 1 ASSIST WITHOUT DIFFICULTY. VOIDING WITHOUT DIFFICULTY. BED ALARM ON FOR SAFETY. PT CHECKED ON HOURLY ROUNDS.
[2019-09-24 08:00] VITALS: BP 131/83
--- NOTE | 2019-09-24 08:11 | HC ---
[facility] [place] [address] CONSULTATION Name: JOSUE TRACEY Room #: 509-P [facility] IN M.R.#: [id number] Admission: 09/20/19 Attend Phys: Ezekiel Amezquita MD Discharge: Date of : 32 Report #: [id number] THIS REPORT FOR: //name// CC: Ezekiel Stratton MD DATE OF SERVICE: 09/22/2019 ENDOCRINE CONSULTATION CONSULTING PHYSICIAN: Dr. Herrera. REASON FOR CONSULTATION: Uncontrolled type 2 diabetes mellitus. HISTORY OF PRESENT ILLNESS: This is an 88-year-old male patient whose medical background is noted for type 2 diabetes mellitus, hypertension, heart failure, obstructive sleep apnea, and anemia as well as chronic kidney disease, who was admitted initially to [facility] on 09/17/2019 due to shortness of breath. It appears that the patient is oxygen dependent and when first seen at the ER, he was found to have pneumonia and CHF exacerbation, and was subsequently transferred to the ICU for further monitoring and management. The patient did well progressively and was eventually transferred to the rehab unit on 09/20/2019. On the specific issue of type 2 diabetes mellitus, the patient notes that he had been diabetic for many years and notes that he is maintained at home on metformin monotherapy at 1000 mg b.i.d. He checks his blood sugar values sporadically and notes that these range from 100 to 150 mg/dL. Denies issues with hypoglycemia. The patient is not aware of issues pertaining to diabetic retinopathy and notes that he does get routine eye exams. He is not aware of issues of kidney function compromise, he is not aware of CAD or CVAs in the past. He is known to have hypertension. REVIEW OF SYSTEMS: CONSTITUTIONAL: Fatigue, tiredness, but not changes in body weight. HEENT: No sore throat, sinus pain, ear drainage. PULMONARY: Shortness of breath, cough and hemoptysis. CARDIAC: Dyspnea on exertion, occasional palpitations, leg swelling, but not chest pain. GASTROINTESTINAL: Occasional abdominal distention, discomfort, nausea, but no vomiting, hematemesis or major changes in bowel movement habits. NEUROLOGY: Occasional lightheadedness, dizziness. Moves with a cane and occasionally a walker. No loss of consciousness, no seizure activity. [address] [address] CONSULTATION Name: JOSUE TRACEY Kapil Room #: 509-P [facility] IN .R.#: [id number] Admission: 09/20/19 Attend Phys: Ezekiel Amezquita MD Discharge: Date of : 32 Report #: [id number] PSYCHIATRIC: No delusions, hallucinations or significant mood changes. Otherwise, review of systems noncontributory other than those mentioned in HPI. PAST MEDICAL HISTORY: 1. Type 2 diabetes mellitus. 2. Hypertension. 3. Diastolic heart failure. 4. Peripheral neuropathy. 5. Obstructive sleep apnea. 6. Anemia. 7. Hypogonadism. 8. Benign prostatic hypertrophy. 9. Glaucoma. ALLERGIES: No known drug allergies. FAMILY HISTORY: Noncontributory. SOCIAL HISTORY: Lives with his , daughter, and granddaughter. Denies active use of alcohol, tobacco or illicit drugs. PAST SURGICAL HISTORY: The patient notes a right kidney surgery about 10 years ago, but maintains that it was not a complete nephrectomy and notes that the mass was removed at that time. CURRENT MEDICATIONS: Include Tylenol 650 mg q. 4 hours p.r.n., DuoNeb q. 4 hours while awake, aspirin 81 mg daily, atorvastatin 40 mg daily, Cardizem 360 mg daily, Rocephin daily, Colace 100 mg at bedtime, Pepcid 20 mg b.i.d., ferrous sulfate 325 mg daily, Flomax 0.4 mg daily, furosemide 40 mg b.i.d., Neurontin 300 mg t.i.d., metformin ER 1000 mg b.i.d., guaifenesin ER 600 mg b.i.d., timolol eyedrops, losartan 100 mg daily, prednisone 30 mg daily on a taper and testosterone cypionate 200 mg q. 21 days. PHYSICAL EXAMINATION: GENERAL: Pleasant -Austrian male patient who is not in apparent pain or distress. VITAL SIGNS: Blood pressure is 113/76 mmHg, heart rate is 59 beats per minute, respirations 16 per minute, temperature is 36.6 degrees. CONSTITUTIONAL: The patient appears comfortable, not in apparent distress, lying in bed. HEENT: Anicteric sclerae. Intact extraocular motions. Slight right-sided ptosis is noted. NECK: Supple, without JVD, carotid bruits. No thyromegaly. CHEST: Noted for moderate entry bilaterally with scattered rales and rhonchi. HEART: Regular rate and rhythm without murmurs or gallops. ABDOMEN: Soft and lax. No guarding, no organomegaly. Active bowel sounds. [facility] [address] [place] [address] CONSULTATION Name: JOSUE TRACEY JR Room #: 509-P ADM IN M.R.#: [id number] Admission: 09/20/19 Attend Phys: Ezekiel Amezquita MD Discharge: Date of : 32 Report #: [id number] EXTREMITIES: Lower extremity exam, pitting edema bilaterally. No skin breaks, ulcerations. Pedal pulses are appreciated. Sensation to light touch is mildly diminished bilaterally. NEUROLOGIC: Awake, alert and oriented to time, place and person. The remainder of examination is nonfocal other than for the peripheral sensory deficits noted. PSYCHIATRY: Awake, alert, interactive, appropriate, pleasant. Normal mood and affect. SKIN: No major ulceration, discoloration. LABORATORY RESULTS: Blood glucose values during the past few days have ranged from 112 mg/dL to 225 mg/dL, but mostly remained above 160 mg/dL. Otherwise, sodium 134, potassium 3.7, chloride 98, CO2 of 37, anion gap less than 1, BUN 60, creatinine 1.7, glucose 142, AST 15, lipase 212, total bilirubin 0.5, calcium 9.6, magnesium 1.8, alkaline phosphatase 86, total protein 7.6, albumin 3.7, EGFR 47. Lactic acid 1.1. Troponin undetectable. BNP 8600. White blood count 9.1, hemoglobin 13.7, hematocrit 43.9, platelets 234. ASSESSMENT AND PLAN: 1. Type 2 diabetes mellitus. The patient conveys an outlook of controlled diabetes mellitus, on metformin monotherapy as an outpatient. This was upkept during this hospital stay and the patient had ranged just above the desired target range control of 100-180 mg/dL. In addition to not being exactly in the control range that he needs to be, I am also concerned about utilizing a full dose of metformin in stage IIIB chronic kidney disease. That said, I believe that we have to reduce his metformin dose to 500 mg b.i.d. Doing so out of necessity, one would expect his blood glucose values to rise even higher. That said, I will also introduce linagliptin 5 mg daily to his regimen so as to compensate for the reduced metformin dosage. I would like to obtain a hemoglobin A1c to get a better feel for his level of control over the past few months. I will maintain blood glucose monitoring a.c. and at bedtime and maintain low dose Humalog supplemental scale for use as necessary. 2. Hypertension. The patient's level of blood pressure control is adequate, he is to continue the current antihypertensive regimen. 3. Hyperlipidemia. The patient is maintained on atorvastatin therapy, he is to continue with the same. 4. Diabetic neuropathy. The patient is maintained on gabapentin therapy and notes a good level of responsiveness to it, he is to continue with the same. 5. Chronic kidney disease. 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 Long-term blood pressure and blood sugar control will be eldridge in stabilizing this outlook. [address] [address] CONSULTATION Name: JOSUE TRACEY Room #: 509-P [facility] IN [facility].#: [id number] Admission: 09/20/19 Attend Phys: Ezekiel Amezquita MD Discharge: Date of : 32 Report #: [id number] I reviewed the patient's clinical care notes, prior consultations, laboratory results as well as other pertinent clinical information in his electronic medical chart for over 35 minutes. I appreciate this consultation by Dr. Herrera. <ELECTRONICALLY SIGNED> By: Thais Cai MD 09/24/19 0811 [id number] Thais Cai MD /nt
--- NOTE | 2019-09-24 11:20 | NUR ---
ASSUME PT CARE AT 0700. PT TOOK MELATONIN LAST NIGHT AND REPORTS SLEPT GOOD LAST NIGHT. PT ALERT AND ORIENTED X4. SAT 95% RA. LUNG SOUND IS BETTER. CONTINUE TO BE ON ABT IV FOR PNEMUNOMIA WITHOUT ADVERSE REACTION NOTED. HAD LOOSE BM THIS AM. REFUSES MIRALAX SCHEDULE THIS AM. UP WITH WALKER WITH MIN ASSIST, GB. CONT B&B HAD BM THIS AM. HAS CHRONIC BACK PAIN AND SHOULDER PAIN. RATED PAIN 6/10, GAVE PRN PERCOCET GIVEN EARLIER BY NIGHT NURSE FEELS BETTER NOW. PT STILL WANTS VOLATEREN GEL FOR CHRONIC ARTHIRITS, NO ORDER AT THIS MOMENT. HAS SMALL SORE ON L LOWER CALF HEALED. DRY SKIN. AMMONIUM LACTATE APPLIED. MEDS TOOK WITH THIN LIQUID SLOWLY. UP TO DINNING FOR MEALS. HAS GOOD APPETITE. ASSIST WITH SETTING UP. FALL PRECAUTIONS IN PLACE, CALL LIGHT WITHIN REACH. OFFERED SUPPORTIVE CARE. WILL TRY TO OBTAIN ORDER FROM [facility] FOR VOLATERENE GEL FOR CHRONIC ARTHRITIC LATER. FALL PRECAUTION IN PLACE. PT USES CALL LIGHT APPROPRIATELY FOR ASSISTANCE. CALL LIGHT WITHIN REACH. UP AND PARTICIPATES WITH THERAPY AT THIS MOMENT.
--- NOTE | 2019-09-24 13:20 | NUR ---
team meeting, recommendation: re team with therapy updates on 09/27/19
[2019-09-24 19:48] VITALS: BP 114/67
--- NOTE | 2019-09-24 23:37 | NUR ---
PT ASSESSMENT DONE AND VSS. MED GIVEN AND WELL TOLERATED. FALL PRECAUTIONS IN PLACE. SLEEPING WELL. HOURLY ROUNDING. CALL LIGHT IN REACH. WILL CONTINUE TO MONITOR.
[2019-09-25 10:11] VITALS: BP 131/67
--- NOTE | 2019-09-25 10:21 | NUR ---
cm called kerwin, left message requesting call back rt dcp.
--- NOTE | 2019-09-25 17:22 | NUR ---
PT ALERT AND ORIENTED TIMES FOUR. VSS, PT C/O BACK PAIN PRN PAIN MEDICATIONS GIVEN WITH GOOD RELEIF. PT WORKED WELL WITH PT/OT TODAY. PT TOLERATES MEDS AND MEALS. PT AT BEDSIDE THIS EVENING. PT SLOWLY PROGRESSING TOWRADS POC GOALS.
[2019-09-25 19:05] VITALS: BP 112/62
--- NOTE | 2019-09-26 01:19 | NUR ---
PT ALERT AND ORIENTED X 4. AMB TO BR WITH WALKER AND ASSIST X 1. VOIDING WITHOUT DIFFICULTY. URINE CLEAR YELLOW. PT C/O PAIN IN HIS BACK. OXYCODONE GIVEN ORDERED AND PT SLEEPING UPON REASSESSMENT. BED ALARM ON FOR SAFETY. PT APPEARS TO BE SLEEPING ON HOURLY ROUNDS.
[2019-09-26 07:24] VITALS: BP 113/61
--- NOTE | 2019-09-26 10:31 | NUR ---
ASSUMED CARE AT 0700 THIS MORNING. PT. VITAL SIGNS STABLE. BLOOD SUGAR WAS 99 THIS MORNING. PT. ON THE UNIT FOR BREAKFAST. STATED HE GOT MELATONIN LAST NIGHT AND SLEPT. WELL. PT. PLEASANT AND COOPERATIVE WITH NURSING STAFF.
[2019-09-26 19:39] VITALS: BP 114/62
--- NOTE | 2019-09-26 23:58 | NUR ---
PT ALERT AND ORIENTED X 4. AMB TO BR WITH WALKER AND ASSIST X 1. SOB WITH EXERTION. C/O PAIN IN HIS BACK. PERCOCET GIVEN AT HS. MELATONIN ALSO GIVEN AT HS FOR SLEEP. BED ALARM ON FOR SAFETY. PT APPEARS TO BE SLEEPING ON HOURLY ROUNDS.
--- NOTE | 2019-09-27 11:21 | NUR ---
ASSUMED CARE AT 0700. PATIENT IS ALERT AND ORIENTED X4. PATIENT KELLY'S. DENTAL AIDE ARE EQUAL. LUNGS ARE CLEAR AND DEMINISHED. ABD IS SOFT WITH BSX4. PATIENT IS UP IN CHAIR. PATIENT GOES OUT TO DINING ROOM FOR MEALS. PATIENT HAS 2 S.L. IN HIS LEFT AC AND FORARM. IV SITES WITHOUT REDNESS OR SWELLING. FALL AND SAFETY PROTOCOLS IN PLACE. DENIES PAIN AT THIS TIME. CONTINUES TO PROGESS SLOWLY TOWARDS D/C GOALS. WILL CONTINUE TO MONITER.
[2019-09-27 20:02] VITALS: BP 124/70
--- NOTE | 2019-09-27 22:28 | NUR ---
PT ASSESSMENT DONE AND VSS. MEDS GIVEN AND WELL TOLERATED. FALL PRECAUTIONS IN PLACE. ASSISTED HIM TO GET READY FOR BED. URINATED VIA URINAL. ASKED FOR SNACK OF MILK, EARLE CRACKERS AND PUDDING. HOB UP WITH PILLOWS FOR SUPPORT AND ANKLES FLOATED ON PILLOW PER REQUEST. HOURLY ROUNDING. CALL LIGHT IN REACH. SLEEPING WELL. WILL CONTINUE TO MONITOR.
[2019-09-28 06:03] LABS: HEMATOCRIT 42.1 % (42.0-52.0); HEMOGLOBIN 13.2 gm/dL (14.0-18.0); MCH 26.8 pg (26.0-34.0); MCHC 31.4 g/dL (28.0-37.0); MCV 85.4 fL (80.0-100.0); PLATELET COUNT 177 thou/uL (150-400); RBC 4.93 mil/uL (4.50-6.00); WBC 8.4 thou/uL (4.0-11.0)
[2019-09-28 06:39] LABS: ALBUMIN 2.7 g/dL (3.4-5.0); CALCIUM 9.6 mg/dL (8.5-10.1); CREATININE 1.2 mg/dL (0.7-1.3); MAGNESIUM 1.3 mg/dL (1.8-2.4); PHOSPHORUS 3.4 mg/dL (2.5-4.9); POTASSIUM 4.5 mmol/L (3.5-5.1)
[2019-09-28 07:48] LABS: ABSOLUTE NEUTROPHILS 6.2 thou/uL (1.4-8.2); METAMYELOCYTES 2 %
[2019-09-28 07:49] VITALS: BP 120/74
[2019-09-28 07:49] LABS: OVALOCYTES OCCASIONAL
--- NOTE | 2019-09-28 09:57 | NUR ---
ASSUMED CARE AT 0700. PATIENT IS ALERT AND ORIENTED X4. PATIENT KELLY'S, ADMINISTRATIVE PERSONAL ASSISTANT ARE EQUAL. LUNGS ARE CLEAR AND DEMINISHED. ABD IS SOFT WITH BSX4. UP TO THE BATHROOM TO VOID SARAH BETH COLORED URINE. UP TO THE DINING ROOM FOR MEALS. PATIENT IS UP WITH ASSIST OF 1 STAFF, GAIT BELT AND WALKER. FALL AND SAFETY PROTOCOLS IN PLACE. S.L.'S IN LEFT FORARM AND AC ARE PATIENT. C/O BACK PAIN. MEDICATED WITH PRN PAIN MED. PATIENT CONTINUES TO PROGRESS TOWARDS D/C GOALS. WILL CONTINUE TO MONITER.
[2019-09-28 19:11] VITALS: BP 105/62
--- NOTE | 2019-09-29 02:24 | NUR ---
ASSESSMENT: PT REMAIN ALERT AND ORIENT TIMES THREE, FORGETFUL AT TIMES. UP WITH ONE ASSISTANCE, GB AND WALKER. VSS, AFEBRILE. C/O SHOULDER PAIN, PRN PAIN MEDS GIVEN WITH GOOD RESULTS. TOLERATE PO INTKE. ONE SMALL BM THIS SHIFT. SLOW PROGRESS TOWARDS DC GOALS.
[2019-09-29 08:00] VITALS: BP 122/72
--- NOTE | 2019-09-29 13:35 | NUR ---
ASSUMED CARE OF PT AT 0715. PT IS A&OX4. IS ON ROOM AIR. IS STABLE. REPORTS PAIN IN SHOULDERS & LOWER BACK MANINLY RIGHT SIDE. THAT IS BEING MANAGED WITH TOPICAL & ORAL PAIN MEDS. IS UP WITH 1 ASSIST, GB, WALKER. REQUIRES EXTRA TIME. FALL PRECAUTIONS & HOURLY ROUNDING CONTINUED THIS SHIFT. LABS & VITALS REVIEWED. HAS MEDS IN PT BIN IN MED ROOM. IS CURRENTLY SITTING IN RECLINER. CHAIR ALARM IN PLACE. CALL LIGHT WITHIN REACH. WATCHING THE FOOTBALL GAME. WILL CONTINUE TO MONITOR.
[2019-09-29 20:00] VITALS: BP 100/59
--- NOTE | 2019-09-29 22:46 | NUR ---
PT ASSESSMENT DONE AND VSS. MEDS GIVEN AND WELL TOLERATED. FALL PRECAUTIONS IN PLACE. ASSISTED TO GET READY FOR BED. SLEEPING WELL. HOURLY ROUNDING. CALL LIGHT IN REACH. WILL CONTINUE TO MONITOR.
[2019-09-30 07:59] VITALS: BP 109/67
--- NOTE | 2019-09-30 12:21 | NUR ---
Nutrition followup: Pt continues on rehab unit with PNA, generalized debility. PO intake is good, 75-100% of meals on 2 gm Na diet. Continues on lasix. BG improved, 97-169 and being managed by powder loader. Not presently on carb controlled diet restrictions which is appropriate with current glycemic control. Low sodium diet has been reviewed. Able to order meals as desired. Continue low nutrition risk.
--- NOTE | 2019-09-30 17:27 | NUR ---
PT ALERT AND ORIENTED TIMES FOUR. VSS, PT C/O BACK PAIN SCHEDULED PAIN CREAM GIVEN WITH GOOD RELEIF. PT TOLERATES MEDS AND MEALS. PT WORKED WELL WITH PT/OT TODAY. PT AT BEDSIDE THIS EVENING. PT PROGRESSING TOWRADS POC GOALS.
[2019-09-30 19:10] VITALS: BP 106/66
--- NOTE | 2019-10-01 03:15 | NUR ---
APPRECIATES VOLTAREN GEL TO SHOULDERS AND ESPECIALLY LOWER BACK. ABLE TO WALK FROM CHAIR TO TOILET WITH 4WW, MANAGES OWN MOUTH CARE AND DENTURES. AWAKE AT 0100 WITH CHRONIC BACK PAIN AND WAS ASLEEP 20 MINUTES AFTER TAKING ONE TAB OXYCODONE FOR IT. ANOTHER DOSE OF MIRALAX AT HS WITH HOPE OF HAVING A BOWEL MOVEMENT. DID NOT THINK ABOUT TAKING HIS USUAL MELATONIN, BUT IS SLEEPING WELL WITHOUT IT
[2019-10-01 07:30] VITALS: BP 113/65
--- NOTE | 2019-10-01 12:07 | H ---
[facility] [place] [address] HISTORY AND PHYSICAL Name: JOSUE TRACEY Room #: 501-A ADM IN [facility]#: [id number] Admission: 09/20/19 Attend Phys: Ezekiel Amezquita MD Discharge: Date of : 32 Report #: [id number] THIS REPORT FOR: //name// CC: Ezekiel Stratton DATE OF SERVICE: 09/20/2019 POSTADMISSION PHYSICIAN EVALUATION HISTORY OF PRESENT ILLNESS: The patient is an 88-year-old male who was admitted for acute in-hospital inpatient rehabilitation. The patient is an -Tajik male who originally presented through the Emergency Room with increased shortness of breath and low O2 saturation. He was placed on CPAP, treated in the ICU for acute respiratory failure, healthcare-associated pneumonia, congestive heart failure acute exacerbation. He was treated with IV Lasix, IV Solu-Medrol and IV Zosyn. He was followed by multiple consultants, physicians including Pulmonary, Geriatrics, Cardiology and Wound Care. He was noted to have generalized weakness, debilitation and pulmonary rehabilitation needs and has now been admitted for acute in-hospital inpatient rehabilitation. Please see the admission history and physical. I agree with the history. The physical examination, assessment and plan as noted. PAST MEDICAL HISTORY, ALLERGIES, SOCIAL HISTORY, FAMILY HISTORY: Please see the history and physical. MEDICATIONS: Please see the full medication listing. REVIEW OF SYSTEMS: No complaints of current chest pain. He does have some shortness of breath with increased activity. No abdominal discomfort. PHYSICAL EXAMINATION: GENERAL: The patient was seen earlier pleasant 88-year-old male, in no obvious distress. VITAL SIGNS: Temperature 36.7, pulse 77, respirations 16, blood pressure 132/89. He is alert and pleasant. Facies appeared symmetric. Follows basic commands without difficulty. CHEST: Some decreased breath sounds were noted. These were diffuse. He was on 2 liters nasal cannula. CARDIOVASCULAR: Sounded regular rate and rhythm. ABDOMEN: Bowel sounds positive, nontender. GENITOURINARY AND RECTAL: Deferred. EXTREMITIES: He needs assistance with basic functional mobility skills with sit to stand, min assist and short distance ambulation min assist. He has some decreased range of motion of both upper and lower extremities, which appear to be due to chronic arthritis. His strength is probably a grade 3+ to 4-/5. He [address] [address] HISTORY AND PHYSICAL Name: JOSUE TRACEY Room #: 501-A [facility] IN ..#: [id number] Admission: 09/20/19 Attend Phys: Ezekiel Amezquita MD Discharge: Date of : 32 Report #: [id number] does have a wound to the left calf. He has had prior total knee replacement incisional scars. The right lower extremity might be a little stronger than the left. ASSESSMENT: An 88-year-old male with the following problem list: 1. Medical complexity with generalized debilitation. 2. Pulmonary rehabilitation. 3. Acute respiratory failure. 4. Healthcare-associated pneumonia. 5. Congestive heart failure. 6. Acute renal insufficiency. 7. Diabetes mellitus type 2. 8. History of spinal stenosis with chronic back pain. 9. Peripheral neuropathy. 10. Hypertension. 11. Hyperlipidemia. 12. Obstructive sleep apnea. PLAN: The patient has been admitted for acute in-hospital inpatient rehabilitation. From a postadmission physician evaluation perspective, there are no relevant changes since the preadmission screening. Please see the above review of prior and current medical and functional conditions and comorbidities. Please see the patient's previous and current functional status. As far as risk of complications, the patient has multiple medical comorbidities and will be followed by the multiple inside sales consultant physicians. Initial plan of care involves the interdisciplinary acute inpatient rehabilitation program. Measurable functional goals would be for the patient to become modified independent with transfers, mobility and ADLs that he can hopefully return back to his prior living situation. Prognosis is reasonably good with estimated length of stay probably at least 7-14 days pending progress. Potential barriers would include his multiple medical comorbidities and decreased functional status. The patient meets diagnostic criteria for an acute in-hospital inpatient rehabilitation stay. He meets the medical necessity criteria and we will have the multiple inside sales consultant physicians continue to follow. He does have the tolerance for therapies and has appropriate discharge goals back to the home setting. <ELECTRONICALLY SIGNED> By: Ezekiel Amezquita MD 10/01/19 1207 1612 [id number] Ezekiel Amezquita MD /nt
--- NOTE | 2019-10-01 12:08 | PLAN ---
[facility] [place] [address] REHAB UNIT PLAN OF CARE Name: JOSUE TRACEY Room #: 501-A ADM IN ..#: [id number] Admission: 09/20/19 Attend Phys: Ezekiel Amezquita MD Discharge: Date of : 32 Report #: [id number] THIS REPORT FOR: //name// CC: Ezekiel Stratton DATE OF SERVICE: 09/23/2019 PROGRESS NOTE AND OVERALL PLAN OF CARE SUBJECTIVE: The patient is seen back today in followup. He is in no distress. Last recorded temperature is 98, pulse 78, respirations 18, blood pressure 92/43. He has been working in therapies with transfers, min assist, gait contact guard 70 feet with a four-wheeled walker. He has gone up and down 4 steps with min assist. In occupational therapy, upper body dressing is min assist, lower body dressing is max assist. ASSESSMENT: 1. Medical complexity with generalized debilitation. 2. Pulmonary rehabilitation. 3. Acute respiratory failure. 4. Healthcare-associated pneumonia. 5. Congestive heart failure. 6. Acute renal insufficiency. 7. Diabetes mellitus type 2. 8. History of spinal stenosis with chronic back pain. 9. Peripheral neuropathy. 10. Hypertension. 11. Hyperlipidemia. 12. Obstructive sleep apnea. PLAN: The overall plan of care is based on the preadmission screen, post-admission physician evaluation and information garnered from therapy assessments. 1. Estimated length of stay is at least 7-14 days pending progress. 2. Medical prognosis is reasonably good. 3. Anticipated interventions includes the interdisciplinary acute inpatient rehabilitation program. 4. Anticipated functional outcomes would be for the patient to become modified independent with transfers, mobility and ADLs at least at the walker level. 5. Discharge destination would be back home with his and family. [facility] [address] [place] [address] REHAB UNIT PLAN OF CARE Name: JOSUE TRACEY Room #: 501-A [facility] IN [facility]#: [id number] Admission: 09/20/19 Attend Phys: Ezekiel Amezquita MD Discharge: Date of : 32 Report #: [id number] 6. Expected therapy by discipline includes PT and OT 1-1/2 hours per day each 5 days a week throughout the duration of the acute inpatient rehabilitation stay. <ELECTRONICALLY SIGNED> By: Ezekiel Amezqutia MD 10/01/19 1208 0922 [id number] Ezekiel Amezquita MD /[facility]
--- NOTE | 2019-10-01 12:57 | NUR ---
team meeting, recommendation: will need assist with bills and pills. dc [facility]th with [facility] ( pt, ot, nursing). nursing to education with on medication assistance at home. no dme, pt has 4ww and cane
--- NOTE | 2019-10-01 14:41 | NUR ---
DISCHARGE PLANNING. ANTICIPATED DISCHARGE PLANNED FOR 10/04 PER UNIT CM. DISCHARGE TO HOME WITH HOME HEALTH SERVICES. PATIENT REFERRAL FAXED TO [facility] PER REQUEST. CALL PLACED TO JULIO C HURTADO INTAKE LIAISON. PATIENT REFERRAL RECEIVED AND IS ACCEPTING OF PATIENT AT DISCHARGE. AMANDA TO FACILITATE PATIENTS HOME HEALTH ONCE DISCHARGE/HH ORDERS RECEIVED. FOLLOWING.
--- NOTE | 2019-10-01 14:59 | NUR ---
ASSUMED CARES AT 0700. PT AWAKE, ALERT AND ORIENTED*4. DENIES PAIN. VITALS REMAIN STABLE. C/O MILD BACK PAIN, VOLTAREN GEL APPLIED. IV ON LEFT FOREARM DC'D, CLOTTED OFF. LEFT WRIST IV INTACT AND PATENT. CREAM APPLIED TO BLE ORDERED. EXTREMITIES ELEVATED R/T BLE. PT UP WITH 1 MIN ASSIST, GB AND WALKER AND TOLERATED WELL. Q1H VISUAL CHECKS. CALL LIGHT WITHIN REACH. FALL PRECAUTIONS IN PLACE
[2019-10-01 15:41] VITALS: BP 113/65
[2019-10-01 20:23] VITALS: BP 113/62
--- NOTE | 2019-10-02 03:57 | NUR ---
APPRECIATES VOLTAREN GEL TO SHOULDERS AND BACK, UP TO VOID AT SIDE OF BED WITH MIN ASSIST POSITIONING. ABLE TO WALK TO TOILET WITH WALKER AND GAIT BELT IF GIVEN TIME, DOING HIS OWN ORAL AND DENTURE CARE WHILE STANDING AT SINK.
[2019-10-02 10:30] VITALS: BP 108/62
--- NOTE | 2019-10-02 12:00 | NUR ---
cm visited with pt to see if was going to be up today " yep after work"/edson, education that need to speak with her rt dcp on "cell # [phone]"/edson. cm left message requested call back.
[2019-10-02 19:10] VITALS: BP 113/67
--- NOTE | 2019-10-03 00:44 | NUR ---
patient aox4 makes needs known. patient ambulates slowly with a walker and gait belt with x1 assist. patient need maximum assitance with adl, bed mobility, transfer and toileting. patient encouraged fluids. patient calm and cooperative with care and meds. call light and personal items within reach. patient in bed asleep at this time breathing regular and unlaboured.
[2019-10-03 10:38] VITALS: BP 113/67
--- NOTE | 2019-10-03 14:32 | NUR ---
ASSUMED CARES AT 0700. PT AWAKE, ALERT AND ORIENTED*4. C/O MILD EDY SHOULDER AND LOWER BACK PAIN, VOLTAREN GEL APPLIED. VITALS REMAIN STABLE. AMMONIUM LACTATE APPLIED TO BLE AND TUBAL INDUSTRIAL SAFETY AND HEALTH MANAGER PLACED. PT UP TO THE DINING AREA FOR MEALS. AMBULATED WITH GB AND WALKER AND TOLERATED WELL. Q1H VISUAL CHECKS. CALL LIGHT WITHIN REACH. FALL PRECAUTIONS IN PLACE
[2019-10-03 19:15] VITALS: BP 86/51
[2019-10-03 20:00] VITALS: BP 128/98
--- NOTE | 2019-10-03 22:13 | NUR ---
PT ASSESSMENT DONE AND VSS. MEDS GIVEN AND WELL TOLERATED. FALL PRECAUTIONS IN PLACE. SLEEPING WELL. HOURLY ROUNDING. CALL LIGHT IN REACHED. WILL CONTINUE TO MONITOR.
[2019-10-04 08:11] VITALS: BP 100/63
--- NOTE | 2019-10-04 10:34 | NUR ---
ASSUMED CARES AT 0700. PT AWAKE, ALERT AND ORIENTED*4. C/O LEFT LOWER EXTREMITY PAIN, PAIN MEDICATION ADMINISTERED ORDERED. BP LOW THIS AM, SBP 100, PT ENCOURAGED TO INCREASE ORAL FLUIDS. BLE CLEANED AND AMMONIA LACTATE APPLIED, TUBAL BLOOD BANK LABORATORY TECHNOLOGIST APPLIED. PT UP WITH 1 MIN ASSIST, GB AND WALKER AND TOLERATED WELL. DC TEACHING TO BE COMPLETED WITH PT AND AT BEDSIDE. Q1H VISUAL CHECKS. CALL LIGHT WITHIN REACH. FALL PRECAUTIONS IN PLACE
[2019-10-04] MEDS ORDERED: LASIX 40 MG TAB40 MG PO (11:51)
[2019-10-04] MEDS ORDERED: COZAAR100 MG PO (11:51)
[2019-10-04] MEDS ORDERED: METFORMIN HCL500 M1 PO (11:52)
[2019-10-04] MEDS ORDERED: TRADJENTA5 MG PO (11:52)
--- NOTE | 2019-10-04 13:30 | NUR ---
Patient to [facility] today with HH care from [facility]. Faxed orders and notified agency of [facility].
--- NOTE | 2019-10-06 14:04 | HC ---
[facility] [place] [address] CONSULTATION Name: JOSUE TRACEY Room #: 501-[address] [facility] [place] ..#: [id number] Admission: 09/20/19 Attend Phys: Ezekiel Amezquita MD Discharge: 10/04/19 Date of : 34 Report #: [id number] THIS REPORT FOR: //name// CC: Ezekiel Amezquita Jaun Chayito DATE OF SERVICE: 09/29/2019 ATTENDING PHYSICIAN: Ezekiel Amezquita MD KEYBOARDING CLERK: Jus Lynn, PhD CLINICAL PRESENTATION: The patient is an 88-year-old male admitted to the [facility] Rehabilitation Unit for comprehensive inpatient rehabilitation program to improve functional mobility and activities of daily living and self-care secondary to deficits from medical complexity and generalized debility. The patient reports having been short of breath and feeling ill, leading to his decision to seek hospitalization. He was admitted through the Emergency Room with increased shortness of breath and low oxygen saturation. The patient was noted to have required pulmonary rehabilitation. His assessment on admission to the rehab unit is medical complexity with generalized debility, pulmonary rehabilitation, acute respiratory failure, healthcare-associated pneumonia, congestive heart failure, acute renal insufficiency, diabetes mellitus type 2, history of spinal stenosis with chronic back pain, peripheral neuropathy, hypertension, hyperlipidemia and obstructive sleep apnea. A complete description of his medical condition and history can be found in his medical record. Neuropsychological consultation was requested to provide assistance in the assessment of cognitive and emotional status and to provide recommendations and services. Prior to this most recent hospitalization, he reports living independently with his in their home. The patient states that he was driving and managing his own medication. However, intermittent periods of forgetting medication are described. The patient is a high school graduate with 2 years of college. 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 He indicates that his works. The patient has had 4 children. His had 2 children. He states that his daughter and grandson are living with him. TECHNIQUES UTILIZED: Clinical interview, review of medical records, staff consultation and behavioral observation, family interview -- , verbal fluency assessment and clock drawing. EXAMINATION FINDINGS: The patient was alert and cooperative with the assessment. He reported problems with sleep and word finding. He does not indicate difficulty with appetite, depression, anxiety or memory. His [facility] [address] [address] CONSULTATION Name: JOSUE TRACEY Room #: 501-A [facility].#: [id number] Admission: 09/20/19 Attend Phys: Ezekiel Amezquita MD Discharge: 10/04/19 Date of : 34 Report #: [id number] feels like the patient's cognitive status is within normal limits. She does not report him having difficulty with memory or general cognitive functioning. His performance on the MMSE 2 brief version was in the borderline range with a raw score of 12/16, T score of 31 and percentile rank of 3. He was 3/3 for initial registration, 4/5 for orientation to time and place. He was 1/3 for immediate recall of 3 items after a brief time delay and distraction. His performance on the MMSE 2 standard version is in the borderline range with a raw score 22/30, T score of 32, percentile rank of 4. He was 1/5 for serial sevens, 2/2 for naming, 1/1 for repetition, 3/3 for auditory comprehension. He could read and follow a single command, write a sentence and copy a simple geometric design. The patient was unable to set the hands of a clock at a designated time. Verbal fluency was in the low average range for letter with a T score of 41 and percentile rank of 18. Category fluency was in the borderline range with a T score of 29 and percentile rank of 2. Overall, total fluency was borderline with a T score of 30 and percentile rank at 2. The patient is presenting with deficits in immediate recall, sustained concentration and attention and verbal fluency, which often suggest executive dysfunction. DIAGNOSTIC IMPRESSION: Neurocognitive disorder, unspecified, without behavior disorder-extent to be determined, likely mild to moderate RECOMMENDATIONS: Family education with his regarding the deficits that he is presenting in cognition. She appears to lack insight into his deficits as describes his cognitive functioning as within normal limits. However, his cognitive deficits deficits are likely to interfere with his ability to manage driving and medication without assistance. A followup neuropsych assessment is recommended. The patient will likely require assistance with medication, finances and nutrition. Driving should be discontinued until further evaluation. Thank you very much for allowing me to provide the consultation on this patient. <ELECTRONICALLY SIGNED> By: Jus Lynn, PhD 10/06/19 [id number] Jus Lynn, PhD /nt
== END 2019-10-04 13:00 | disposition home health service (06) | DRG 189 ==
LOC: ENTRNSPT 10-04 12:49
PROVIDERS: Internal Medicine; Nurse Practitioner; Nurse Practitioner Family; ADMIT Physical Medicine & Rehabilitation
DX: J96.01 Acute respiratory failure with hypoxia (principal); J18.9 Pneumonia, unspecified organism; I50.33 Acute on chronic diastolic (congestive) heart failure; N17.9 Acute kidney failure, unspecified; I13.0 Hypertensive heart and chronic kidney disease with heart failure and stage 1 through stage 4 chronic kidney disease, or unspecified chronic kidney disease; L97.819 Non-pressure chronic ulcer of other part of right lower leg with unspecified severity; L97.829 Non-pressure chronic ulcer of other part of left lower leg with unspecified severity; R53.81 Other malaise; E78.00 Pure hypercholesterolemia, unspecified; Z96.653 Presence of artificial knee joint, bilateral; N40.0 Benign prostatic hyperplasia without lower urinary tract symptoms; M48.00 Spinal stenosis, site unspecified; E11.42 Type 2 diabetes mellitus with diabetic polyneuropathy; G47.33 Obstructive sleep apnea (adult) (pediatric); E78.5 Hyperlipidemia, unspecified; E11.22 Type 2 diabetes mellitus with diabetic chronic kidney disease; N18.3 Chronic kidney disease, stage 3 (moderate); G89.29 Other chronic pain; M54.9 Dorsalgia, unspecified; D63.8 Anemia in other chronic diseases classified elsewhere; R41.9 Unspecified symptoms and signs involving cognitive functions and awareness; I83.018 Varicose veins of right lower extremity with ulcer other part of lower leg; I83.028 Varicose veins of left lower extremity with ulcer other part of lower leg; K59.00 Constipation, unspecified; Z79.899 Other long term (current) drug therapy; Z79.84 Long term (current) use of oral hypoglycemic drugs; Z79.82 Long term (current) use of aspirin
CPT/HCPCS: 10112